=== PATIENT | female | born 1970 | race Caucasian/White ===

== ENCOUNTER 2020-11-19 14:45 | Emergency (ER) | payer BC, OTHER ==
[2020-11-19 15:04] VITALS: BP 121/76; PULSE 72; TEMP 99; BMI 32.8
[2020-11-19] MEDS ORDERED: METOCLOPRAMIDE HCL 10 MG TABLET (FP) PO ONE ×2 (15:26→15:37)
[2020-11-19] MEDS ORDERED: ACETAMINOPHEN 500 MG TABLET (FP) PO ONE (15:26)
[2020-11-19] MEDS ORDERED: MECLIZINE HCL 25 MG TABLET (FP) PO ONE (15:26)
[2020-11-19] MEDS ORDERED: MECLIZINE HCL 25 MG TABLET (FP) ONE (15:37)
[2020-11-19] MEDS ORDERED: ACETAMINOPHEN 325 MG TABLET (FP) ONE (15:38)
== END 2020-11-19 16:15 | disposition home or self-care (01) ==
LOC: FER 14:45
DX: S06.0X0A Concussion without loss of consciousness, initial encounter (principal); W22.8XXA Striking against or struck by other objects, initial encounter
CPT/HCPCS: 70450-TC; 99284-25